=== PATIENT | female | born 1985 | race Caucasian/White ===

== ENCOUNTER 2016-07-24 07:02 | Emergency (ER) | payer OTHER ==
[~2016-07-24] VITALS: Ht 157.5 cm; Wt 82.8 kg
[~2016-07-24 07:02] MED LIST: BACTRIM,SEPT1 TABLET PO; CITALOPRAM HBR10 MG PO; CLEOCIN300 MG PO; FLUOXETINE HCL20 MG PO; HYDROCHLOROTHIA25 MG PO; INDOCIN25 MG PO; LISINOPRIL10 MG PO; MOTRIN800 MG PO; PREDNISONE10 MG PO; TESSALON PERLE100 MG PO; TRAZODONE HCL50 MG PO; TRIPLE ANTIB28.35 GM TP; TYLENOL REGULA325 MG PO; ULTRACET1 TABLET PO; VENTOLIN HFA18 GM IH
[2016-07-24 07:38] LABS: HEMATOCRIT 36.7 % (36.0-46.0); MCH 29.8 PG (29.0-34.0); MCV 90.4 FL (83-99); MEAN PLAT.VOLUME 10.8 uM^3 (9.5-12.4); PLATELET COUNT 227 K/uL (156-360); RBC DIS.WIDTH-CV 15.4 % (11.8-14.6); RBC DIS.WIDTH-SD 49.4 % (39-53); RED BLOOD COUNT 4.06 M/uL (3.80-5.20); WHITE BLOOD COUNT 10.2 K/uL (4.1-10.2)
[2016-07-24 08:05] LABS: CHLORIDE 109 mEq/L (99-109); POTASSIUM 4.2 mEq/L (3.7-5.4); SODIUM 138 mEq/L (136-147)
[2016-07-24 08:07] LABS: GLUCOSE 76 mg/dL (70-99)
[2016-07-24 08:08] LABS: ANION GAP 9 MEQ/L (2-14)
[2016-07-24 08:09] LABS: TOTAL BILIRUBIN 0.3 mg/dL (0.0-1.0)
[2016-07-24 08:11] LABS: ALKALINE PHOSPHATASE 50 IU/L (3-129); GFR ESTIMATE (CALCULATED) > 59 mL/min/
[2016-07-24 08:12] LABS: UREA NITROGEN (BUN) 10 mg/dL (9-23)
[2016-07-24 08:15] LABS: QUANTITATIVE HCG < 4.0 MIU/ML
[2016-07-24 08:38] LABS: ADD MIUA? YES; BILIRUBIN NEGATIVE; BLOOD NEGATIVE; COLOR YELLOW ((YELLOW)); GLUCOSE (STRIP) NEGATIVE; KETONES NEGATIVE; LEUKOCYTES MODERATE; NITRITE NEGATIVE; PH, URINE 6.5 (5-8); PROTEIN (STRIP) NEGATIVE; SPECIFIC GRAVITY 1.021 (1.000-1.030); UROBILINOGEN 0.2 MG/DL (0.2-1.0)
[2016-07-24 08:48] LABS: BACTERIA 2+; CASTS PRESENT /LPF; CRYSTALS NONE SEEN; EPITHELIAL CELLS 1+; PATHOLOGICAL CAST NONE SEEN; RED BLOOD CELLS 0-5 /HPF (0-5); SMALL ROUND CELL NONE SEEN; UCUL ADDED? YES; WHITE BLOOD CELLS TNTC /HPF (0-5); YEAST-LIKE CELL NONE SEEN
[2016-07-24] MEDS ORDERED: SEROQUEL400 MG PO (08:55)
[2016-07-24] MEDS ORDERED: PRAZOSIN HCL1 MG PO (08:57)
[2016-07-24] MEDS ORDERED: LAMICTAL100 MG PO (08:58)
[2016-07-24 09:09] LABS: MUCUS NONE SEEN
[2016-07-24 10:15] LABS: INTERNAL CONTROL VALID? YES
[2016-07-24 10:45] LABS: C DIFF TOXIN NEGATIVE (NEGATIVE)
[2016-07-24 10:46] LABS: PROBE CHECK PASS; SPECIMEN PROCESSING CONTROL PASS
[2016-07-24] MEDS ORDERED: MUCUS ER600 MG PO (11:14)
[2016-07-24] MEDS ORDERED: TESSALON PERLE100 MG PO (11:14)
[2016-07-24] MEDS ORDERED: MACROBID100 MG PO (11:14)
[2016-07-24 11:22] VITALS: BP 116/79
== END 2016-07-24 11:24 | disposition home or self-care (01) ==
LOC: EME 07:02
PROVIDERS: Nurse Practitioner Family
DX: A08.4 Viral intestinal infection, unspecified (principal); N39.0 Urinary tract infection, site not specified; J06.9 Acute upper respiratory infection, unspecified; H93.8X1 Other specified disorders of right ear; I10 Essential (primary) hypertension; F17.200 Nicotine dependence, unspecified, uncomplicated; Z87.442 Personal history of urinary calculi; Z88.1 Allergy status to other antibiotic agents; Z88.6 Allergy status to analgesic agent; Z88.0 Allergy status to penicillin; Z71.6 Tobacco abuse counseling
CPT/HCPCS: 80053; 81003; 83630; 84702; 85027; 87077; 87086; 87177; 87186; 87493; 99281; 99284

== ENCOUNTER 2017-07-03 12:18 | Emergency (ER) | payer OTHER ==
[~2017-07-03] VITALS: Ht 162.6 cm; Wt 80.4 kg
[~2017-07-03 12:18] MED LIST changes: +LAMICTAL100 MG PO; +MACROBID100 MG PO; +MUCUS ER600 MG PO; +PRAZOSIN HCL1 MG PO; +SEROQUEL400 MG PO
[2017-07-03] MEDS ORDERED: NARCAN4 MG NS (17:21)
[2017-07-03 18:05] VITALS: BP 112/72
== END 2017-07-03 18:06 | disposition home or self-care (01) ==
LOC: EME 12:18
DX: T40.1X1A Poisoning by heroin, accidental (unintentional), initial encounter (principal); R07.81 Pleurodynia; I10 Essential (primary) hypertension; Z87.442 Personal history of urinary calculi; F17.200 Nicotine dependence, unspecified, uncomplicated; Z88.0 Allergy status to penicillin; Z88.6 Allergy status to analgesic agent; Z88.5 Allergy status to narcotic agent
CPT/HCPCS: 71101; 93005; 99281; 99285; J1885

== ENCOUNTER 2017-07-07 13:09 | Emergency (ER) | payer OTHER ==
[~2017-07-07] VITALS: Ht 157.5 cm; Wt 81.1 kg
[~2017-07-07 13:09] MED LIST changes: +NARCAN4 MG NS
[2017-07-07 16:26] LABS: HEMATOCRIT 34.1 % (36.0-46.0); MCH 27.7 PG (29.0-34.0); MCHC 32.3 G/DL (30.0-36.0); MCV 85.9 FL (83-99); PLATELET COUNT 229 K/uL (156-360); RBC DIS.WIDTH-CV 15.5 % (11.8-14.6); RBC DIS.WIDTH-SD 49.1 % (39-53); RED BLOOD COUNT 3.97 M/uL (3.80-5.20); WHITE BLOOD COUNT 6.9 K/uL (4.1-10.2)
[2017-07-07 16:49] LABS: ANION GAP 7 MEQ/L (2-14); CHLORIDE 107 MEQ/L (99-109); POTASSIUM 3.3 MEQ/L (3.7-5.4); SAMPLE HEMOLYSIS CHECK 0; SAMPLE ICTERIC CHECK 0; SAMPLE LIPEMIA CHECK 0; SODIUM 143 MEQ/L (136-147); TOTAL BILIRUBIN 0.3 MG/DL (0.0-1.0)
[2017-07-07 16:54] LABS: ALKALINE PHOSPHATASE 45 IU/L (3-129); GFR ESTIMATE (CALCULATED) > 59 mL/min/; GLUCOSE 93 mg/dL (70-99); UREA NITROGEN (BUN) 11 mg/dL (9-23)
[2017-07-07 16:59] LABS: QUANTITATIVE HCG < 4.0 MIU/ML
[2017-07-07] MEDS ORDERED: ZITHROMAX250 MG PO (17:02)
[2017-07-07] MEDS ORDERED: MOTRIN600 MG PO (17:03)
[2017-07-07 17:37] VITALS: BP 147/95
== END 2017-07-07 17:49 | disposition home or self-care (01) ==
LOC: EME 13:09
PROVIDERS: Emergency Medicine
DX: J18.9 Pneumonia, unspecified organism (principal); I10 Essential (primary) hypertension; F17.200 Nicotine dependence, unspecified, uncomplicated
CPT/HCPCS: 71020; 80053; 84702; 85027; J1885

== ENCOUNTER 2017-12-02 19:05 | Emergency (ER) | payer SELFPAY ==
[~2017-12-02] VITALS: Ht 154.9 cm; Wt 69.8 kg
[~2017-12-02 19:05] MED LIST changes: +MOTRIN600 MG PO; +ZITHROMAX250 MG PO
[2017-12-02 19:45] LABS: HEMATOCRIT 37.5 % (36.0-46.0); HEMOGLOBIN 11.9 G/DL (11.9-15.5); MCH 26.7 PG (29.0-34.0); MCHC 31.7 G/DL (30.0-36.0); MCV 84.3 FL (83-99); PLATELET COUNT 278 K/uL (156-360); RBC DIS.WIDTH-CV 15.4 % (11.8-14.6); RBC DIS.WIDTH-SD 46.6 % (39-53); RED BLOOD COUNT 4.45 M/uL (3.80-5.20)
[2017-12-02 19:55] LABS: ALBUMIN 4.1 g/dL (3.2-4.8); CHLORIDE 104 mEq/L (99-109)
[2017-12-02 19:56] LABS: POTASSIUM 3.4 mEq/L (3.7-5.4); SODIUM 140 mEq/L (136-147)
[2017-12-02 19:58] LABS: GLUCOSE 116 mg/dL (70-99); TOTAL PROTEIN 6.7 g/dL (6.4-8.3)
[2017-12-02 20:00] LABS: TOTAL BILIRUBIN 0.4 mg/dL (0.0-1.0)
[2017-12-02 20:01] LABS: ALKALINE PHOSPHATASE 47 IU/L (3-129); CREATININE 0.8 mg/dL (0.6-1.3); GFR ESTIMATE (CALCULATED) > 59 mL/min/
[2017-12-02 20:03] LABS: AST (GOT) 21 IU/L (2-34); UREA NITROGEN (BUN) 7 mg/dL (9-23)
[2017-12-02 20:04] LABS: ALT (GPT) 19 IU/L (3-49)
[2017-12-02 20:11] LABS: QUANTITATIVE HCG < 4.0 MIU/ML
[2017-12-02 21:19] LABS: APPEARANCE CLEAR ((CLEAR)); BILIRUBIN NEGATIVE; BLOOD MODERATE; COLOR COLORLESS ((YELLOW)); GLUCOSE (STRIP) NEGATIVE; KETONES NEGATIVE; LEUKOCYTES NEGATIVE; NITRITE NEGATIVE; PROTEIN (STRIP) NEGATIVE; SPECIFIC GRAVITY 1.003 (1.000-1.030); UROBILINOGEN 0.2 MG/DL (0.2-1.0)
[2017-12-02 21:22] LABS: BACTERIA NONE SEEN /HPF; EPITHELIAL CELLS NONE SEEN /HPF; MUCUS TRACE /LPF; RED BLOOD CELLS 0-5 /HPF (0-5); UCUL ADDED? NO; WHITE BLOOD CELLS 0-5 /HPF (0-5)
[2017-12-02 21:25] LABS: THYROTROPIN (TSH) 1.4 MIU/L (0.4-5.5)
[2017-12-02] MEDS ORDERED: ZOFRAN ODT4 MG PO (22:14)
[2017-12-02 22:15] VITALS: BP 104/103
== END 2017-12-02 22:30 | disposition home or self-care (01) ==
LOC: EME 19:05 → EXP 19:05
DX: R11.2 Nausea with vomiting, unspecified (principal); R19.7 Diarrhea, unspecified; R42 Dizziness and giddiness; R63.4 Abnormal weight loss; R53.83 Other fatigue; I10 Essential (primary) hypertension; F31.9 Bipolar disorder, unspecified; F41.9 Anxiety disorder, unspecified; F32.9 Major depressive disorder, single episode, unspecified; F17.200 Nicotine dependence, unspecified, uncomplicated; Z87.442 Personal history of urinary calculi; Z90.49 Acquired absence of other specified parts of digestive tract; Z83.49 Family history of other endocrine, nutritional and metabolic diseases; Z88.0 Allergy status to penicillin; Z88.5 Allergy status to narcotic agent; Z88.6 Allergy status to analgesic agent
CPT/HCPCS: 80053; 81003; 84443; 84702; 85027; 99281; 99282